=== PATIENT | male | born 1960 | race Caucasian/White ===

== ENCOUNTER 2025-06-23 13:07 | Emergency (ER) | payer BC, SELFPAY ==
[2025-06-23 13:17] VITALS: BP 107/68; PULSE 97; RESP 18; TEMP 36.2; O2SAT 97; BMI 29.5
--- NOTE | 2025-06-23 13:23 | ED.GENADULT ---
HPI - General Adult General Date Seen: 06/23/25 Chief complaint: Allergic Reaction Stated complaint: Stung by bee, allergic Time Seen by Provider: 06/23/25 13:23 History of Present Illness HPI narrative: 65-year-old male presents to the ER today after he was stung by a bee. He has a past medical history of hypertension and dyslipidemia. He is generally healthy. He is allergic to penicillins and sulfa. He has multiple previous bee stings over his life without any serious reaction. Lives in [place] and is visiting [place] today because his son is a freshman at [employer] and the patient came up to see his son play in the football game this afternoon. He was feeling fine this morning. Just prior to onset of the football game he was stung on the left volar forearm by a bee. He got the be often is pretty confident that he has gotten the stinger out. He initially had some swelling and pain on the left forearm at the site of the bite but then within a couple of minutes began to feel unusual. He became very lightheaded and presyncopal. His vision started to go white. He noted that he was very dizzy whenever standing up but felt better when he would sit down her put his head between his legs. He did not pass out. He was not having any palpitations. He was not having any chest pain. He was perhaps a little nauseous and his noted he was little sweaty. He was not short of breath. He does have a mild headache which she says is getting better. No other symptoms leading up to this. No other recent illnesses. No vomiting or diarrhea. No recent chest pain. He has no known history of coronary disease. Related Data Home Medications ?Medication ?Instructions ?Recorded ?Confirmed atorvastatin 80 mg tablet 80 mg PO DAILY 06/23/25 06/23/25 duloxetine 60 mg capsule,delayed 60 mg PO DAILY 06/23/25 06/23/25 release lisinopril 40 mg tablet 40 mg PO DAILY 06/23/25 06/23/25 Previous Rx's ?Medication ?Instructions ?Recorded cetirizine 10 mg capsule (Zyrtec) 10 mg PO DAILY PRN allergy 06/23/25 symptoms #7 caps epinephrine 0.3 mg/0.3 mL 0.3 mg (0.3 mL) IM Q5-15M PRN #2 ea 06/23/25 injection, auto-injector (EpiPen) prednisone 20 mg tablet 60 mg (3 x 20 mg) PO DAILY #6 tabs 06/23/25 Allergies Allergy/AdvReac Type Severity Reaction Status Date / Time No Known Drug Allergies Allergy Verified 06/23/25 13:57 [facility] Social History Smoking Status: Never smoker Do you use any of these nicotine containing products: None Second hand tobacco smoke exposure: No How often do you have a drink containing alcohol: never How often do you have six or more drinks on one occasion: Never AUDIT-C Alcohol total score: 0 Non-prescribed substance use: denies use service: No Exam Narrative: Exam Narrative: Constitutional: Appears well-developed and well-nourished. Alert. Conversant. Non toxic. HENT: Head: Atraumatic. Nose: Nose normal. Mouth/Throat: Oral mucosa is clear and moist. no trismus. Pharynx normal. Tonsils symmetric. No tonsillar enlargement, erythema, or exudate. No tongue or pharyngeal edema. Phonation normal. No trismus. Eyes: Conjunctivae normal. EOM normal. Pupils equal, round, and reactive to light. No scleral icterus. Neck: Normal range of motion. Neck supple. No tracheal deviation present. Cardiovascular: Normal rate, regular rhythm. No gallop. No friction rub. No murmur heard. Symmetric radial artery pulses Pulmonary/Chest: Effort normal. No stridor. No respiratory distress. No wheezes. No rales. No rhonchi . No tenderness. Abdominal: Soft. No distension. No mass. No tenderness. No rebound. No guarding. Musculoskeletal: RUE: Normal range of motion. No tenderness. No deformity LUE: Normal range of motion. No tenderness. No deformity RLE: Normal range of motion. No edema. No tenderness. No deformity LLE: Normal range of motion. No edema. No tenderness. No deformity Lymph: No cervical adenopathy. Neurological: Alert and oriented to person, place, and time. Normal strength. CN II-VII intact. No sensory deficit. GCS eye subscore is 4. GCS verbal subscore is 5. GCS motor subscore is 6. Normal coordination Skin: He does have swelling and induration of the skin on the proximal volar left forearm with a small epi in the center indicating the bee sting site. I do not see any evidence for a retained stinger. No other hives. Skin is warm and dry. No rash noted. No pallor. Normal capillary refill. Psychiatric: Normal mood. Normal affect. Polite. Const: Vital Signs, click to edit/add: Vital Signs - 24 hr 06/23/25 13:17 06/23/25 14:30 06/23/25 15:01 Temperature 97.2 F L 97.8 F 98.0 F Pulse Rate [Right Pulse Oximeter] 97 82 90 Respiratory Rate 18 18 16 Blood Pressure [Ri ght Upper Arm] 107/68 132/72 132/80 Pulse Oximetry 97 98 99 Oxygen Delivery Me thod Room Air Room Air Room Air 06/23/25 15:42 Temperature Pulse Rate [Right Pulse Oximeter] 80 Respiratory Rate 18 Blood Pressure [Ri ght Upper Arm] 150/90 H Pulse Oximetry 98 Oxygen Delivery Me thod Room Air Course Vital Signs Vital signs: Initial Vital Signs Temperature 97.2 F L 06/23/25 13:17 Temperature Source Temporal Artery Scan 06/23/25 13:17 Pulse Rate 97 06/23/25 13:17 Respiratory Rate 18 06/23/25 13:17 Blood Pressure 107/68 06/23/25 13:17 Blood Pressure Mean 81 06/23/25 13:17 Blood Pressure Position Sitting 06/23/25 13:17 Pulse Oximetry 97 06/23/25 13:17 Oxygen Delivery Method Room Air 06/23/25 13:17 Vital Signs Temperature 97.2 F L 06/23/25 13:17 Pulse Rate 97 06/23/25 13:17 Respiratory Rate 18 06/23/25 13:17 Blood Pressure 107/68 06/23/25 13:17 Pulse Oximetry 97 06/23/25 13:17 Oxygen Delivery Method Room Air 06/23/25 13:17 Temperature 98.0 F 06/23/25 15:01 Pulse Rate 80 06/23/25 15:42 Respiratory Rate 18 06/23/25 15:42 Blood Pressure 150/90 H 06/23/25 15:42 Pulse Oximetry 98 06/23/25 15:42 Oxygen Delivery Method Room Air 06/23/25 15:42 Medications Administered Medications: Discontinued Medications Generic Name Dose Route Start Last Admin Trade Name Freq PRN Reason Stop Dose Admin Acetaminophen 1,000 mg 06/23/25 13:57 06/23/25 14:01 Acetaminophen 500 Mg Tablet PO 06/23/25 13:58 1,000 mg ONCE ONE Administration Cetirizine HCl 10 mg 06/23/25 13:45 06/23/25 13:47 Cetirizine Hcl 10 Mg Tablet PO 06/23/25 13:46 10 mg ONCE ONE Administration Epinephrine HCl 0.3 mg 06/23/25 13:38 06/23/25 13:50 Epinephrine 0.3 Mg Pen IM 06/23/25 13:39 0.3 mg ONCE ONE Administration Famotidine 20 mg 06/23/25 13:38 06/23/25 13:49 Famotidine 20 Mg Tablet PO 06/23/25 13:39 20 mg ONCE ONE Administration Prednisone 40 mg 06/23/25 13:38 06/23/25 13:46 Prednisone 20 Mg Tablet PO 06/23/25 13:39 40 mg ONCE ONE Administration Medical Decision Making MDM Narrative Medical decision making narrative: This patient presents for evaluation of she allergic reaction after he had a bee sting to his left forearm. Shortly after the bee sting he began to be lightheaded and presyncopal. This is suggestive with probable early anaphylaxis. Fortunately he did not have any other hives, airway swelling.. Signs and symptoms are consistent with allergic reaction. No airway involvement, bronchospasm, GI symptoms, or other sign of anaphylaxis. He was briefly presyncopal prior to arrival but felt normal and remained normotensive throughout his ER stay here. Patient was treated here with medications as noted above. Symptoms remained improved during observation for more than 2 hours after meds. No recurrence of lightheadedness or presyncope. No signs involving hives or anaphylaxis or anaphylactic shock. Will send home with epipen, steroids, antihistamines. Potential for rebound reaction was discussed. Return of anaphylactic symptoms were discussed with patient and they were instructed to inject epi-pen and call 911 should these symptoms occur. Given the rapidity of resolution, lack of respiratory difficulty and no oral or pharyngeal swelling, would not admit at this time for anaphylaxis. ECG Data Attestation: I personally reviewed and interpreted this ECG as follows: Interpretation: Normal sinus rhythm Rate 84 ID interval 188. Left axis deviation. No pathologic Q-waves. No ST segment elevation or depression. QTC 360, QTC 425 Discharge Plan Discharge Clinical Impression: Allergic reaction, Anaphylaxis, Accidental bee sting Patient Disposition: Home, Self-Care Condition: Stable Instructions: Insect Bite or Sting (ED), General Allergic Reaction (ED) Additional Instructions: As we discussed, please use antihistamines (Zyrtec 10 mg daily and Benadryl 25 mg q.6 hours as needed) and steroids (prednisone 60 mg by mouth daily) for the next 2 of days to help reduce the chance for rebound allergic reaction. If you have swelling in her throat, trouble breathing, lightheadedness or fainting, widespread hives, or any other concerns, please use her EpiPen and return to the ER right away Prescriptions: New epinephrine [EpiPen] 0.3 mg/0.3 mL auto-injector 0.3 mg IM Q5-15M PRNQty: 2 0RF Rx Instructions: do not exceed 3 doses per episode prednisone 20 mg tablet 60 mg PO DAILY Qty: 6 0RF Zyrtec 10 mg capsule 10 mg PO DAILY PRN (Reason: allergy symptoms) Qty: 7 0RF No Action lisinopril 40 mg tablet 40 mg PO DAILY atorvastatin 80 mg tablet 80 mg PO DAILY duloxetine 60 mg capsule,delayed release(DR/EC) 60 mg PO DAILY Follow Up/Referrals: Provider,Not a Local [Primary Care Provider, Family Practice] Stand Alone Forms: Flypaper Info Instructions
[2025-06-23] MEDS: CETIRIZINE HCL 10 MG TABLET PO (13:47)
[2025-06-23] MEDS: FAMOTIDINE 20 MG TABLET PO (13:49)
[2025-06-23] MEDS: EPINEPHrine 0.3 MG PEN IM (13:50)
[2025-06-23] MEDS: ACETAMINOPHEN 500 MG TABLET 1000 MG PO (14:01)
[2025-06-23 14:30] VITALS: BP 132/72; PULSE 82; RESP 18; TEMP 36.6; O2SAT 98
[2025-06-23 15:01] VITALS: BP 132/80; PULSE 90; RESP 16; TEMP 36.7; O2SAT 99
[2025-06-23 15:42] VITALS: BP 150/90; PULSE 80; RESP 18; O2SAT 98
== END 2025-06-23 16:03 | disposition home or self-care (01) ==
PROVIDERS: Emergency Provider Emergency Medicine
DX: T63.441A Toxic effect of venom of bees, accidental (unintentional), initial encounter (principal); R42 Dizziness and giddiness
CPT/HCPCS: 93005; 96372; 99283; 99284; A9270; J0169; J7512